=== PATIENT | female | born 1985 ===

== ENCOUNTER 2018-10-06 09:33 | Outpatient (CLI) | payer OTHER | END 2018-10-06 09:41 | disposition home or self-care (01) | LOC: SONOGRAMA 09:33 | DX: E04.1 Nontoxic single thyroid nodule (principal) ==

== ENCOUNTER 2018-10-25 16:39 | Inpatient (IN) | payer OTHER ==
[~2018-10-25] VITALS: Ht 170.2 cm; Wt 50.8 kg
== END 2018-11-15 17:20 | disposition home or self-care (01) | DRG 371 ==
LOC: ER 16:39 → SURH 10-26 06:01 → SURG 10-26 06:01
PROVIDERS: ADMIT Surgery
PROC: BW21ZZZ Computerized Tomography (CT Scan) of Abdomen and Pelvis (ICD-10-PCS; 2018-10-26)
PROC: 02HV33Z Insertion of Infusion Device into Superior Vena Cava, Percutaneous Approach (ICD-10-PCS; 2018-10-27)
PROC: BW2GZZZ Computerized Tomography (CT Scan) of Pelvic Region (ICD-10-PCS; 2018-11-02)
PROC: 0W9J30Z Drainage of Pelvic Cavity with Drainage Device, Percutaneous Approach (ICD-10-PCS; principal; 2018-11-03)
DX: K35.33 Acute appendicitis with perforation, localized peritonitis, and gangrene, with abscess (principal); A41.9 Sepsis, unspecified organism; N83.291 Other ovarian cyst, right side

== ENCOUNTER 2018-12-24 10:00 | Outpatient (CLI) | payer OTHER | END 2018-12-24 10:09 | disposition home or self-care (01) | LOC: LAB 10:00 | DX: N20.0 Calculus of kidney (principal); Z51.81 Encounter for therapeutic drug level monitoring ==

== ENCOUNTER 2018-12-27 10:02 | Outpatient (CLI) | payer OTHER | END 2018-12-27 10:49 | disposition home or self-care (01) | LOC: TOM 10:02 | DX: R10.31 Right lower quadrant pain (principal) ==

== ENCOUNTER 2019-01-31 17:19 | Emergency (ER) | payer OTHER ==
[~2019-01-31] VITALS: Ht 170.2 cm; Wt 49.0 kg
== END 2019-02-01 18:49 | disposition home or self-care (01) ==
LOC: ER 17:19
DX: R10.31 Right lower quadrant pain (principal)

== ENCOUNTER → 2019-03-27 09:02 | Outpatient (CLI) | payer OTHER | END | disposition home or self-care (01) | LOC: LAB 09:02 | DX: K35.890 Other acute appendicitis without perforation or gangrene (principal); Z51.81 Encounter for therapeutic drug level monitoring ==

== ENCOUNTER 2019-04-02 08:03 | Outpatient (CLI) | payer OTHER | END 2019-04-02 08:23 | disposition home or self-care (01) | LOC: MRI 08:03 | DX: K35.890 Other acute appendicitis without perforation or gangrene (principal) | CPT/HCPCS: 72197; 74183 ==

== ENCOUNTER 2019-04-12 09:18 | Day surgery (SDC) | payer OTHER | END 2019-04-12 14:00 | disposition home or self-care (01) | LOC: AMB-ENDOS 09:18 | DX: K64.1 Second degree hemorrhoids (principal) ==

== ENCOUNTER → 2021-08-09 | Emergency (ER) | payer OTHER ==
[~2021-08-09] VITALS: Ht 170.2 cm; Wt 50.8 kg
[~2021-08-09] MED LIST: SYNTHROID88 MCG
== END | disposition home or self-care (01) ==
LOC: ER 02:10
DX: R00.2 Palpitations (principal)